=== PATIENT | male | born 1995 | race Two or more races ===

== ENCOUNTER 2025-06-19 08:28 | Emergency (ER) | payer BC, OTHER ==
[~2025-06-19] VITALS: Ht 177.8 cm; Wt 113.6 kg
[2025-06-19 08:33] VITALS: TEMP 98.7
--- NOTE | 2025-06-19 08:38 | ECG ---
[facility] Test Date: 2025-06-19 Test Time: 08:33:04 Pat Name: EVY MALAGON Department: ED Room: Gender: M Wound Treatment Rn: ER : 1995 Requested By: OUMAR JOYA Order Number: [id number] Reading MD: Ramo Corral Measurements Intervals [place] Rate: 52 P: 17 WV: 157 QRS: -1 QRSD: 100 T: -2 QT: 441 QTc: 411 Interpretive Statements Sinus rhythm Borderline T abnormalities, inferior leads Baseline wander in lead(s) V1,V2,V3,V4,V5,V6 Electronically Signed On 06-19-2025 18:55:31 PST by Ramo Corral Please click the below link to view image of tracing.
[2025-06-19 09:00] VITALS: RESP 18; O2SAT 95
[2025-06-19] MEDS: SODIUM CHLORIDE 0.9% 1,000 ML IV ONE (09:00)
--- NOTE | 2025-06-19 09:03 | ED.PDOC ---
HPI (NEURO) HPI Comments Patient is a 29-year-old male with no significant past medical history brought in by EMS due to presyncope. As per EMS, while the patient was in the bathroom around 6:30am this morning, his heard him stumbling, dropped his phone, when she got in found the patient to be dizzy, lethargic, leaning against the wall unable to open his eyes. She walked him out and sat him on the bed, he subsequently went back and fell asleep which is what prompted her to call the EMS. As per EMS, when they arrived patient was responsive and oriented but lethargic and slow in responding. Per , patient recently had a and has been feeling more exhausted than usual. Upon my assessment, patient is AOX4, however lethargic, slow in responses and somewhat of a poor historian. Patient says he felt faint in the bathroom, denies any loss of consciousness or any trauma, denies similar symptoms in the past. Upon re-evaluation at 9:33 a.m., patient more somnolent and lethargic from prior. At 10:05 a.m. patient was given 2 mg of Narcan with minimal improvement in mentation. Around 1:00 p.m. patient woke up briefly gave additional history and subsequently became somnolent and went back to sleep. Peer to peer communication held with [place] provider Dr. Bucio at 14:45 to initiate transfer, case # [id number]. However, patient left AMA Chief Complaint: Syncope Time Seen by MD: 08:37 Mode of Arrival: EMS Past Medical History PAST MEDICAL HISTORY: Denies Surgical History (Cont'd) Knee surgery x4 Family History Family History: Family hx of heart rodriguez Social History Smoker: Other (Uses vaporized tobacco daily) Alcohol: Occasionally (Last drink 2 days ago) Drugs: Denies Drug Use Lives In: Home Constitutional: denies: chills, diaphoresis, fatigue, fever, malaise, sweats, weakness, others EENTM: reports: blurred vision; denies: double vision, ear bleeding, ear discharge, ear drainage, ear pain, ear ringing, eye pain, eye redness, hearing loss, mouth pain, mouth swelling, nasal discharge, nose bleeding, nose congestion, nose pain, photophobia, tearing, throat pain, throat swelling, voice changes, others Respiratory: denies: cough, hemoptysis, orthopnea, SOB at rest, shortness of breath, SOB with excertion, stridor, wheezing, others Cardiovascular: denies: chest pain, dizzy spells, diaphoresis, Dyspnea on exertion, edema, irregular heart beat, left arm pain, lightheadedness, pa lpitations, PND, syncope, others Gastrointestinal: reports: nausea; denies: abdomen distended, abdominal pain, blood streaked bowels, constipated, diarrhea, dysphagia, difficulty swallowing, hematemesis, melena, poor appetite, poor fluid intake, rectal bleeding, rectal pain, vomiting, others Genitourinary: denies: burning, dysuria, flank pain, frequency, hematuria, incontinence, penile discharge, penile sore, pain, testicle pain, testicle swel ling, urgency, others Neurological: denies: dizziness, fainting, headache, left sided numbness, left sided weakness, numbness, paresthesia, pre-existing deficit, right sided numbness, right sided weakness, seizure, speech problems, tingling, tremors, weakness, others Musculoskeletal: denies: back pain, gout, joint pain, joint swelling, muscle pain, muscle stiffness, neck pain, others Integumetry: denies: bruises, change in color, change in hair/nails, dryness, laceration, lesions, lumps, rash, wounds, others Allergic/Immunocompromised: denies: Difficulty Healing, Frequent Infections, Hives, Itching, others Hematologic/Lymphatic: denies: anemia, blood clots, easy bleeding, easy bruising, swollen glands, others Endocrine: denies: excessive hunger, excessive sweating, excessive thirst, excessive urination, flushing, intolerance to cold, intolerance to heat, unexplained weight gain, unexplained weight loss, others Psychiatric: denies: anxiety, bipolar disorder, depression, hopeless, panic disorder, schizophrenia, sleepless, suicidal, others Physical Exam General Appearance: No Apparent Distress, Normal, Other (Lethargic) HEENT: Normal ENT Inspection, PERRL/EOMI, Other (Left eye closed, able to open, notes blurry vision in left eye) Neck: Full Range of Motion, Normal, Normal Inspection Respiratory: Lungs Clear, No Respiratory Distress, Normal Breath Sounds Cardiovascular: Bradycardia, No Edema, No JVD, No Murmur, No Gallop Breast Exam: Deferred Gastrointestinal: none, No Organomegaly, Non Tender, No Pulsatile Mass, Normal Bowel Sounds Genitalia: Deferred Pelvic: Deferred Rectal: Rectal Exam not done Extremities: No calf tenderness, Non-tender, No pedal edema Neurologic: Facial Droop (Mild facial droop on left), No Motor Deficits, No Sensory Deficits, Speech Problem (Mild slurring noted) Cerebellar Function: Normal, Unable to Test Reflexes: NOT DONE Skin: Dry, Normal Color Peripheral Pulses: 2+ dorsalis pedis (R), 2+ dorsalis pedis (L) Lymphatic: NOT DONE Was a procedure done? Was a procedure done?: No Differential Diagnosis (SZ) Seizure: Psychogenic Seizure, CVA/TIA, Drug Ingestion, Idiopathic, Syncope CVA: Drug Overdose Headache: Migraine X-Ray, Labs, Meds, VS Vital Signs Date Time Temp Pulse Resp B/P (MAP) Pulse Ox O2 Delivery O2 Flow Rate FiO2 06/19/25 13:30 53 16 128/69 (88) 96 06/19/25 13:15 78 16 98 Room Air* 0 21 06/19/25 09:00 18 95 Room Air* 0 21 06/19/25 08:33 98.7 51 18 143/80 97 98.7 06/19/25 08:33 52 Lab Test 06/19/25 13:35 06/19/25 10:29 06/19/25 09:16 06/19/25 08:40 Range/Units Urine Color Light-yellow Yellow Urine Clarity Clear Clear Urine pH 5.5 5.0-9.0 Urine Specific [place] 1.018 1.001-1.035 Urine Protein Negative Negative Urine Ketones Negative Negative Urine Blood Negative Negative /uL Urine Nitrite Negative Negative Urine Bilirubin Negative Negative Urine Urobilinogen Normal Negative mg/dL Urine Leukocyte Esterase Negative Negative /uL Urine RBC <1 0 - 3 /hpf Urine Microscopic WBC < 1 0-3 /HPF Urine Squamous Epithelial Cells None seen <5 /hpf Urine Bacteria None seen None Seen /hpf Urine Glucose Normal Normal mg/dL Urine Opiates Screen Neg NEGATIVE Urine Fentanyl Screen Neg NEGATIVE Urine Barbiturates Screen Neg NEGATIVE Urine Phencyclidine Screen Neg NEGATIVE Urine Amphetamines Screen Neg NEGATIVE Urine Benzodiazepines Screen Neg NEGATIVE Urine Cocaine Screen Neg NEGATIVE Urine Cannabinoids Screen Neg NEGATIVE Troponin I High Sensitivity < 3 L 3 L </=54 ng/L White Blood Count 4.8 4.4-10.8 10^3/uL Red Blood Count 5.14 4.5-5.90 10^6/uL Hemoglobin 15.6 13.5-17.5 g/dL Hematocrit 45.1 41.0-53.0 % Mean Corpuscular Volume 87.7 80.0-100.0 fL Mean Corpuscular Hemoglobin 30.4 28.0-32.0 pg Mean Corpuscular Hemoglobin Concent 34.7 32.0-36.0 g/dL Red Cell Distribution Width 13.0 11.8-14.3 % Platelet Count 150 140-450 10^3/uL Mean Platelet Volume 10.4 6.9-10.8 fL Neutrophils (%) (Auto) 58.4 37.0-80.0 % Lymphocytes (%) (Auto) 28.4 10.0-50.0 % Monocytes (%) (Auto) 9.4 0.0-12.0 % Eosinophils (%) (Auto) 3.0 0.0-7.0 % Basophils (%) (Auto) 0.8 0.0-2.0 % Neutrophils # (Auto) 2.8 1.6-8.6 10 ^3/uL Lymphocytes # (Auto) 1.4 0.4-5.4 10 ^3/uL Monocytes # (Auto) 0.4 0-1.3 10 ^3/uL Eosinophils # (Auto) 0.1 0-0.8 10 ^3/uL Basophils # (Auto) 0 0-0.2 10 ^3/uL Nucleated Red Blood Cells 0.1 % Sodium Level 142 136-145 mmol/L Potassium Level 4.1 3.5-5.1 mmol/L Chloride Level 106 98-107 mmol/L Carbon Dioxide Level 27 20-31 mmol/L Anion Gap 9 5-15 Blood Urea Nitrogen 13 9-23 mg/dL Creatinine 1.17 0.700-1.30 mg/dL Glomerular Filtration Rate Calc 88 >90 mL/min BUN/Creatinine Ratio 11.1 10.0-20.0 Serum Glucose 99 74-106 mg/dL Lactic Acid Level 1.2 0.4-2.0 mmol/L Calcium Level 9.4 8.7-10.4 mg/dL Plasma/Serum Blood Alcohol < 3.0 <10 mg/dL POC Glucose 102 70-106 mg/dl Current Medications Medications (Trade) Dose Ordered Sig/Ascencion Route Start Time Stop Time Status Last Admin Sodium Chloride 1,000 ml @ 1,000 mls/hr Q1H ONCE IV 06/19/25 09:00 06/19/25 09:59 DC 06/19/25 09:00 Naloxone HCl (Narcan) 2 mg ONCE ONCE IV 06/19/25 10:15 06/19/25 10:16 DC 06/19/25 10:00 Time of 1ST Reevaluation: 09:33 Reevaluation 1ST: Unchanged Time of 2ND Reevaluation: 10:57 Reevaluation 2ND: Unchanged Time of 3RD Reevaluation: 14:15 Reevaluation 3RD: Unchanged Patient Education/Counseling: Diagnosis, Treatment, Prognosis, Need For Follow Up Family Education/Counseling: No Family Present Departure 1 Departure Time of Disposition: 16:30 Impression: Primary Impression: CVA (cerebral vascular accident) Additional Impressions: Drug ingestion Psychogenic nonepileptic seizure TIA (transient ischemic attack) Syncope Qualified Codes: R55 - Syncope and collapse Dehydration Disposition: 07 LEFT AGAINST MEDICAL ADVICE Condition: Guarded Critical Care Note Critical Care Time?: No Stability Stability form required: TIM Valdivia RESIDENT Jun 19, 2025 09:03
--- NOTE | 2025-06-19 09:34 | DVH ---
CT HEAD WITHOUT CONTRAST INDICATION: near syncope COMPARISON: None TECHNIQUE: CT of the head without intravenous contrast. RADIATION DOSE: CTDIvol: 56.32 mGy, DLP: 995.75 mGy*cm FINDINGS: There is no evidence of acute intracranial hemorrhage, extra-axial collection, mass effect, midline shift, herniation or hydrocephalus. The ventricles, sulci and cisterns are age appropriate. The triplett-white differentiation is intact. The visualized paranasal sinuses and mastoid air cells are clear. The surrounding soft tissues and osseous structures are unremarkable. IMPRESSION: No evidence of acute intracranial hemorrhage, mass effect or hydrocephalus.
[2025-06-19 09:41] LABS: Hematocrit 45.1 % (41.0-53.0); Hemoglobin 15.6 g/dL (13.5-17.5); Mean Corpuscular Hemoglobin 30.4 pg (28.0-32.0); Mean Corpuscular Volume 87.7 fL (80.0-100.0); Nucleated Red Blood Cells % 0.1 %
[2025-06-19 09:46] LABS: Chloride 106 mmol/L (98-107); Potassium 4.1 mmol/L (3.5-5.1); Sodium 142 mmol/L (136-145)
[2025-06-19 09:47] LABS: Anion Gap 9 (5-15); Carbon Dioxide 27 mmol/L (20-31)
[2025-06-19 09:48] LABS: Calcium 9.4 mg/dL (8.7-10.4)
[2025-06-19 09:52] LABS: Glucose 99 mg/dL (74-106)
[2025-06-19 09:53] LABS: BUN/Creatinine Ratio 11.1 (10.0-20.0); Blood Urea Nitrogen 13 mg/dL (9-23)
[2025-06-19] MEDS: NALOXONE HCL 1MG/ML 2ML SYRINGE IV ONE (10:00)
[2025-06-19] MEDS: NALOXONE HCL 1MG/ML 2ML SYRINGE ONE (10:26)
--- NOTE | 2025-06-19 12:29 | DVH ---
INDICATION: near syncope TECHNIQUE: Frontal view of the chest. COMPARISON: None FINDINGS: . Mild increased interstitial markings noted. No definite infiltrates. No effusions. Heart size normal. IMPRESSION: 1. Mild increased interstitial markings. 2. No definite infiltrates. HA[place]
[2025-06-19 13:15] VITALS: PULSE 78; RESP 16; O2SAT 98
[2025-06-19 13:30] VITALS: BP 128/69; PULSE 53; RESP 16; O2SAT 96
[2025-06-19 13:46] LABS: Urine Protein, UAD Negative (Negative)
[2025-06-19 14:08] LABS: Amphetamine Screen, Urine Neg (NEGATIVE); Barbiturate Scree,Urine Neg (NEGATIVE); Benzodiazephine Screen, Urine Neg (NEGATIVE); Cannabinoid Screen, Urine Neg (NEGATIVE); Cocaine Screen, Urine Neg (NEGATIVE); Opiate Scree,Urine Neg (NEGATIVE); Phencyclidine Screen, Urine Neg (NEGATIVE)
== END 2025-06-19 16:19 | disposition left against medical advice (07) ==
LOC: ER 08:28 → EDBD 08:28 → ER 16:19
DX: I63.9 Cerebral infarction, unspecified (principal); F44.5 Conversion disorder with seizures or convulsions; G45.9 Transient cerebral ischemic attack, unspecified; R55 Syncope and collapse; E86.0 Dehydration; F17.200 Nicotine dependence, unspecified, uncomplicated; Z79.899 Other long term (current) drug therapy
CPT/HCPCS: 36415; 70450; 71045; 80048; 80307; 80320; 81001; 82962; 83605; 84484; 85025; 93005; 96361; 96374; 99285; J2312; J7030